=== PATIENT | female | born 1995 | race Caucasian/White ===

== ENCOUNTER → 2019-07-20 13:50 | Outpatient (CLI) | payer OTHER, SELFPAY ==
[2019-07-20 15:52] LABS: Internal QC Validated? YES +Cl - CLEAR BKGD; Pregnancy, Urine Negative Negative
== END ==
PROVIDERS: Referring Provider Dermatology; Visit Provider Dermatology
DX: L70.0 Acne vulgaris (principal); Z79.899 Other long term (current) drug therapy
CPT/HCPCS: 81025

== ENCOUNTER 2020-01-27 10:36 | Outpatient (RCR) | payer OTHER, SELFPAY | END 2020-02-10 23:59 | LOC: EMPH 10:36 | PROVIDERS: Visit Provider Family Medicine Geriatric Medicine | DX: Z11.59 Encounter for screening for other viral diseases (principal) | CPT/HCPCS: 87635; U0003 ==

== ENCOUNTER 2020-02-08 10:50 | Outpatient (RCR) | payer OTHER, SELFPAY | END 2020-02-10 23:59 | LOC: EMPH 10:50 | PROVIDERS: Visit Provider Family Medicine Geriatric Medicine | DX: Z11.59 Encounter for screening for other viral diseases (principal) | CPT/HCPCS: 87635; U0003 ==

== ENCOUNTER 2020-03-10 11:35 | Outpatient (RCR) | payer OTHER, SELFPAY | END 2020-03-12 23:59 | LOC: EMPH 11:35 | PROVIDERS: Visit Provider Family Medicine Geriatric Medicine | DX: Z03.818 Encounter for observation for suspected exposure to other biological agents ruled out (principal) | CPT/HCPCS: 87426 ==

== ENCOUNTER 2020-04-06 10:46 | Outpatient (RCR) | payer OTHER, SELFPAY | END 2020-04-11 23:59 | LOC: EMPH 10:46 | PROVIDERS: Visit Provider Family Medicine Geriatric Medicine | DX: Z03.818 Encounter for observation for suspected exposure to other biological agents ruled out (principal) | CPT/HCPCS: 87426 ==

== ENCOUNTER 2020-06-10 14:16 | Outpatient (RCR) | payer OTHER, SELFPAY | END 2020-06-12 23:59 | LOC: EMPH 14:16 | PROVIDERS: Visit Provider Family Medicine Geriatric Medicine | DX: Z03.818 Encounter for observation for suspected exposure to other biological agents ruled out (principal) | CPT/HCPCS: 87426 ==

== ENCOUNTER 2020-06-21 10:47 | Outpatient (RCR) | payer OTHER, SELFPAY | END 2020-07-10 23:59 | LOC: EMPH 10:47 | PROVIDERS: Referring Provider Family Medicine Geriatric Medicine; Visit Provider Family Medicine Geriatric Medicine | DX: Z03.818 Encounter for observation for suspected exposure to other biological agents ruled out (principal) | CPT/HCPCS: 87426 ==

== ENCOUNTER → 2021-04-17 15:33 | Outpatient (CLI) | payer OTHER, SELFPAY ==
[2021-04-20 17:08] LABS: Chlamydia By Nucleic Acid AMP Negative (Negative)
[2021-04-20 19:46] LABS: Gonococcus By Nucleic Acid AMP Negative (Negative)
[2021-04-20 19:47] LABS: HPV Reflexed? NOT INDICATED
== END ==
PROVIDERS: Visit Provider Obstetrics & Gynecology
DX: Z12.4 Encounter for screening for malignant neoplasm of cervix (principal)
CPT/HCPCS: 87491; 87591; 88142